=== PATIENT | female | born 1940 | race African-American/Black ===

== ENCOUNTER 2019-01-19 16:46 | Inpatient (IN) ==
[2019-01-19] MEDS ORDERED: DEXTROSE 50% 25 GM/50 ML VIAL IV PRN ×2 (19:32→19:33)
[2019-01-19] MEDS ORDERED: GLUCAGON 1 MG VIAL IM PRN (19:32)
[2019-01-19] MEDS ORDERED: ONDANSETRON 4 MG/2 ML VIAL IV PRN (19:34)
[2019-01-19] MEDS ORDERED: DOCUSATE SODIUM 100 MG CAPSULE PO PRN (19:34)
[2019-01-19] MEDS ORDERED: hydrALAZINE 20 MG/1 ML VIAL IV PRN (19:34)
[2019-01-19] MEDS ORDERED: ZALEPLON 5 MG CAPSULE PO PRN (19:34)
[2019-01-19] MEDS ORDERED: guaiFENesin/DM ER 600-30 MG TABLET PO PRN (19:34)
[2019-01-19] MEDS ORDERED: diphenhydrAMINE CAP 25 MG CAPSULE PO PRN (19:34)
[2019-01-19] MEDS ORDERED: ACETAMINOPHEN 325 MG TABLET PO PRN (19:34)
[2019-01-19] MEDS ORDERED: ALBUTEROL 2.5 MG/3 ML NEB RESP TX PRN (19:43)
[2019-01-19 19:54] LABS: ABG Base Excess -1.9 MMOL/L (-2.5-2.5); ABG HCO3 22.8 MMOL/L (20-26); ABG Oxygen Saturation 98.2 % (95-100); ABG TCO2 30.5 MMOL/L (23-27); Allen Test Positive
[2019-01-19 19:58] LABS: ABG PH 7.084 (7.35-7.45)
[2019-01-19 20:04] LABS: Basophils % 0.6 % (0.0-0.8); Eosinophils % 0.6 % (0.00-10.9); Hemoglobin 11.8 GM/DL (12.0-16.0); Immature Granulocytes % 0.8 %; Immature Granulocytes Absolute 0.05 #; Lymphocytes % 15.3 % (21.3-54.2); Mean Corpuscular HGB Conc 31.1 GM/DL (32-36); Mean Corpuscular Volume 91.3 FL (87-102); Mean Platelet Volume 10.2 FL (9.6-12.0); Monocytes % 5.5 % (1.7-12.7); NRBC # 0.03 10*3/uL; Neutrophils % 77.2 % (38.7-73.9); Platelet Count 155 T/CUMM (130-400); Red Blood Count 4.16 MC/CUMM (3.8-5.5); White Blood Count 6.4 T/CUMM (4-12)
[2019-01-19 20:22] LABS: Calcium 8.6 MG/DL (8.5-10.1); Osmolality,Calculated 296.3 MOS/KG (273-304)
[2019-01-19] MEDS ORDERED: SODIUM POLYSTYRENE SULFATE 15 GM/60 ML BOTTLE PO ONE (20:37)
[2019-01-19] MEDS ORDERED: SODIUM BICARBONATE 50 MEQ/50 ML VIAL IV ONE (20:37)
[2019-01-19] MEDS ORDERED: FUROSEMIDE 40 MG/4 ML VIAL IV SCH (21:00)
[2019-01-19 22:15] LABS: ABG Base Excess -0.7 MMOL/L (-2.5-2.5); ABG HCO3 23.2 MMOL/L (20-26); ABG Oxygen Saturation 66.9 % (95-100); ABG TCO2 29.8 MMOL/L (23-27)
[2019-01-19 22:20] LABS: ABG PH 7.141 (7.35-7.45)
[2019-01-19 22:21] LABS: ABG PCO2 93.7 MM HG (35-48); ABG PO2 37.5 MM HG (80-95)
[2019-01-19 22:24] LABS: ABG Base Excess -0.2 MMOL/L (-2.5-2.5); ABG HCO3 30.9 MMOL/L (20-26); ABG Oxygen Saturation 86.6 % (95-100); ABG PO2 59.7 MM HG (80-95); ABG TCO2 33.7 MMOL/L (23-27); Allen Test Positive; Pt O2 Delivery Device BIPAP
[2019-01-19 22:28] LABS: ABG PCO2 90.3 MM HG (35-48); ABG PH 7.152 (7.35-7.45)
[2019-01-19] MEDS: cefTRIAXone 1,000 MG in SYRINGE 1 EACH IV SCH (22:48)
[2019-01-19] MEDS: INSULIN LISPRO 100 UNIT/ML SUBCUT SCH (22:51)
[2019-01-19 22:53] LABS: Troponin I 0.082 NG/ML (0.00-0.045)
[2019-01-19] MEDS: methylPREDNISolone SOD SUC 40 MG/1 ML VIAL IV SCH (23:00)
[2019-01-20] MEDS ORDERED: ENOXAPARIN 80 MG/0.8 ML SYRINGE SUBCUT ONE
[2019-01-20] MEDS: AZITHROMYCIN INJ 500 MG in SODIUM CHLORIDE 0.9% 250 ML IV SCH ×2 (00:07→23:22)
[2019-01-20] MEDS: INSULIN LISPRO 100 UNIT/ML SUBCUT SCH ×5 (00:15→21:49)
[2019-01-20] MEDS: ALBUTEROL/IPRATROPIUM 3 ML NEB RESP TX SCH ×4 (01:37→19:34)
[2019-01-20 02:15] LABS: Apearance,Urine CLEAR (Clear); Bacteria,Urine Occasional /HPF (Few); Bilirubin,Urine Negative (Negative); Blood, Urine Negative (Negative); Glucose,Urine (UA) Negative (Negative); Hyaline Casts,Urine 3 /LPF (0-3); Ketones,Urine 5 mg/dL (Negative); Mucus,Urine Occasional /LPF (Occasional); Nitrite,Urine Negative (Negative); Protein,Urine 30 MG/DL; RBC,Urine 1 /HPF (0-4); Squamous Epithelial Cell,Urine Occasional /HPF (0-10); Urine Color Yellow (Yellow); Urine Specific Gravity 1.009 (1.001-1.035); Urine Urobilinogen < 2.0 EU/DL (0.2-1.0); WBC,Urine 2 /HPF (0-6)
[2019-01-20] MEDS: FUROSEMIDE 40 MG/4 ML VIAL IV SCH ×4 (02:46→13:21)
[2019-01-20 03:29] LABS: ABG HCO3 29.6 MMOL/L (20-26); ABG PCO2 54.7 MM HG (35-48); ABG PH 7.351 (7.35-7.45); ABG PO2 81.8 MM HG (80-95); ABG TCO2 31.3 MMOL/L (23-27); Allen Test Positive; Pt O2 Delivery Device BIPAP
[2019-01-20] MEDS: methylPREDNISolone SOD SUC 40 MG/1 ML VIAL IV SCH ×3 (03:55→20:50)
[2019-01-20 05:13] LABS: Basophils % 0.2 % (0.0-0.8); Hematocrit 36.9 VOL% (35.7-47.0); Hemoglobin 11.6 GM/DL (12.0-16.0); Immature Granulocytes % 0.7 %; Immature Granulocytes Absolute 0.04 #; Lymphocytes # 0.5 10*3/uL (1.4-4.0); Lymphocytes % 8.3 % (21.3-54.2); Mean Corpuscular HGB Conc 31.4 GM/DL (32-36); Mean Corpuscular Volume 88.9 FL (87-102); Mean Platelet Volume 10.6 FL (9.6-12.0); Monocytes % 0.9 % (1.7-12.7); Neutrophils % 89.9 % (38.7-73.9); Platelet Count 160 T/CUMM (130-400); Red Blood Count 4.15 MC/CUMM (3.8-5.5); White Blood Count 5.5 T/CUMM (4-12)
[2019-01-20 05:42] LABS: Calcium 8.7 MG/DL (8.5-10.1); Osmolality,Calculated 301.8 MOS/KG (273-304)
[2019-01-20 06:14] LABS: Lymphocytes 4 % (20-55); Platelet Estimate Decreased; Polychromasia Few; Segmented Neutrophils 96 % (50-85); Total Cells Counted 100
[2019-01-20] MEDS ORDERED: NIFEdipine 10 MG CAPSULE PO PRN (08:16)
[2019-01-20] MEDS: carvediloL 12.5 MG TABLET PO SCH ×2 (09:07→20:53)
[2019-01-20] MEDS: amLODIPine 10 MG TABLET PO SCH (09:08)
[2019-01-20] MEDS: ATORVASTATIN 20 MG TABLET PO SCH (09:08)
[2019-01-20] MEDS: PANTOPRAZOLE 40 MG TABLET PO SCH (09:09)
[2019-01-20] MEDS: ENOXAPARIN 30 MG/0.3 ML SYRINGE SUBCUT SCH (12:34)
[2019-01-20] MEDS: cefTRIAXone 1,000 MG in SYRINGE 1 EACH IV SCH (20:50)
[2019-01-21] MEDS: FUROSEMIDE 40 MG/4 ML VIAL IV SCH ×2 (01:07→13:45)
[2019-01-21] MEDS: ALBUTEROL/IPRATROPIUM 3 ML NEB RESP TX SCH ×4 (01:15→19:45)
[2019-01-21] MEDS: methylPREDNISolone SOD SUC 40 MG/1 ML VIAL IV SCH ×3 (04:40→21:50)
[2019-01-21 04:45] LABS: Hematocrit 34.2 VOL% (35.7-47.0); Hemoglobin 10.8 GM/DL (12.0-16.0); Immature Granulocytes % 0.4 %; Immature Granulocytes Absolute 0.02 #; Lymphocytes # 0.6 10*3/uL (1.4-4.0); Lymphocytes % 12.3 % (21.3-54.2); Mean Corpuscular HGB Conc 31.6 GM/DL (32-36); Mean Corpuscular Volume 87.9 FL (87-102); Mean Platelet Volume 10.3 FL (9.6-12.0); Monocytes % 3.2 % (1.7-12.7); NRBC # 0.02 10*3/uL; Neutrophils % 84.1 % (38.7-73.9); Platelet Count 141 T/CUMM (130-400); Red Blood Count 3.89 MC/CUMM (3.8-5.5); Red Cell Distribution Width 14.8 % (9.3-17.3); White Blood Count 5.1 T/CUMM (4-12)
[2019-01-21 04:59] LABS: Calcium 8.2 MG/DL (8.5-10.1); Osmolality,Calculated 296.5 MOS/KG (273-304)
[2019-01-21] MEDS: INSULIN LISPRO 100 UNIT/ML SUBCUT SCH ×4 (09:13→21:49)
[2019-01-21] MEDS: ENOXAPARIN 30 MG/0.3 ML SYRINGE SUBCUT SCH (09:13)
[2019-01-21] MEDS: amLODIPine 10 MG TABLET PO SCH (09:14)
[2019-01-21] MEDS: ATORVASTATIN 20 MG TABLET PO SCH (09:14)
[2019-01-21] MEDS: PANTOPRAZOLE 40 MG TABLET PO SCH (09:14)
[2019-01-21] MEDS: carvediloL 12.5 MG TABLET PO SCH ×2 (09:15→21:50)
[2019-01-21] MEDS: cefTRIAXone 1,000 MG in SYRINGE 1 EACH IV SCH (21:50)
[2019-01-22] MEDS: ALBUTEROL/IPRATROPIUM 3 ML NEB RESP TX SCH ×4 (00:35→19:41)
[2019-01-22] MEDS: methylPREDNISolone SOD SUC 40 MG/1 ML VIAL IV SCH (03:14)
[2019-01-22] MEDS: FUROSEMIDE 40 MG/4 ML VIAL IV SCH ×3 (03:14→20:50)
[2019-01-22 06:40] LABS: Calcium 8.4 MG/DL (8.5-10.1); Osmolality,Calculated 294.1 MOS/KG (273-304)
[2019-01-22] MEDS: INSULIN LISPRO 100 UNIT/ML SUBCUT SCH ×4 (09:18→20:44)
[2019-01-22] MEDS: AZITHROMYCIN 250 MG TABLET PO SCH (09:18)
[2019-01-22] MEDS: amLODIPine 10 MG TABLET PO SCH (09:18)
[2019-01-22] MEDS: PANTOPRAZOLE 40 MG TABLET PO SCH (09:18)
[2019-01-22] MEDS: ATORVASTATIN 20 MG TABLET PO SCH (09:18)
[2019-01-22] MEDS: carvediloL 12.5 MG TABLET PO SCH ×2 (09:18→20:45)
[2019-01-22] MEDS: ENOXAPARIN 30 MG/0.3 ML SYRINGE SUBCUT SCH (09:18)
[2019-01-22] MEDS: INSULIN GLARGINE 100 UNIT/ML SUBCUT SCH (10:20)
[2019-01-22] MEDS: SODIUM POLYSTYRENE SULFATE 15 GM/60 ML BOTTLE PO SCH (10:21)
[2019-01-22] MEDS: cefTRIAXone 1,000 MG in SYRINGE 1 EACH IV SCH (20:44)
[2019-01-23] MEDS: ALBUTEROL/IPRATROPIUM 3 ML NEB RESP TX SCH ×4 (01:18→20:19)
[2019-01-23] MEDS: INSULIN LISPRO 100 UNIT/ML SUBCUT SCH ×4 (09:52→21:59)
[2019-01-23] MEDS: carvediloL 12.5 MG TABLET PO SCH ×2 (10:04→21:59)
[2019-01-23] MEDS: INSULIN GLARGINE 100 UNIT/ML SUBCUT SCH (10:04)
[2019-01-23] MEDS: ENOXAPARIN 30 MG/0.3 ML SYRINGE SUBCUT SCH (10:04)
[2019-01-23] MEDS: AZITHROMYCIN 250 MG TABLET PO SCH (10:04)
[2019-01-23] MEDS: SODIUM POLYSTYRENE SULFATE 15 GM/60 ML BOTTLE PO SCH (10:05)
[2019-01-23] MEDS: amLODIPine 10 MG TABLET PO SCH (10:05)
[2019-01-23] MEDS: predniSONE 20 MG TABLET PO SCH (10:05)
[2019-01-23] MEDS: PANTOPRAZOLE 40 MG TABLET PO SCH (10:05)
[2019-01-23] MEDS: ATORVASTATIN 20 MG TABLET PO SCH (10:05)
[2019-01-23] MEDS: FUROSEMIDE 40 MG/4 ML VIAL IV SCH ×2 (10:20→21:59)
[2019-01-23] MEDS: cefTRIAXone 1,000 MG in SYRINGE 1 EACH IV SCH (21:59)
[2019-01-24] MEDS: ALBUTEROL/IPRATROPIUM 3 ML NEB RESP TX SCH ×4 (00:58→19:59)
[2019-01-24 05:40] LABS: Calcium 7.9 MG/DL (8.5-10.1); Osmolality,Calculated 295.5 MOS/KG (273-304)
[2019-01-24] MEDS: ENOXAPARIN 30 MG/0.3 ML SYRINGE SUBCUT SCH (08:58)
[2019-01-24] MEDS: ATORVASTATIN 20 MG TABLET PO SCH (08:59)
[2019-01-24] MEDS: AZITHROMYCIN 250 MG TABLET PO SCH (08:59)
[2019-01-24] MEDS: INSULIN GLARGINE 100 UNIT/ML SUBCUT SCH (08:59)
[2019-01-24] MEDS: predniSONE 20 MG TABLET PO SCH (08:59)
[2019-01-24] MEDS: amLODIPine 10 MG TABLET PO SCH (08:59)
[2019-01-24] MEDS: PANTOPRAZOLE 40 MG TABLET PO SCH (08:59)
[2019-01-24] MEDS: INSULIN LISPRO 100 UNIT/ML SUBCUT SCH ×4 (09:00→22:54)
[2019-01-24] MEDS: carvediloL 12.5 MG TABLET PO SCH ×2 (09:00→22:55)
[2019-01-24] MEDS: SODIUM POLYSTYRENE SULFATE 15 GM/60 ML BOTTLE PO SCH (09:00)
[2019-01-24] MEDS: FUROSEMIDE 40 MG TABLET PO SCH ×2 (11:13→17:07)
[2019-01-24] MEDS: cefTRIAXone 1,000 MG in SYRINGE 1 EACH IV SCH (22:55)
[2019-01-25] MEDS: ALBUTEROL/IPRATROPIUM 3 ML NEB RESP TX SCH ×4 (00:20→19:30)
[2019-01-25 07:06] LABS: Calcium 8.2 MG/DL (8.5-10.1); Osmolality,Calculated 295.5 MOS/KG (273-304)
[2019-01-25] MEDS: PANTOPRAZOLE 40 MG TABLET PO SCH (08:58)
[2019-01-25] MEDS: AZITHROMYCIN 250 MG TABLET PO SCH (08:58)
[2019-01-25] MEDS: carvediloL 12.5 MG TABLET PO SCH ×2 (08:58→21:41)
[2019-01-25] MEDS: predniSONE 20 MG TABLET PO SCH (08:59)
[2019-01-25] MEDS: FUROSEMIDE 40 MG TABLET PO SCH ×2 (08:59→17:42)
[2019-01-25] MEDS: SODIUM POLYSTYRENE SULFATE 15 GM/60 ML BOTTLE PO SCH (08:59)
[2019-01-25] MEDS: ATORVASTATIN 20 MG TABLET PO SCH (08:59)
[2019-01-25] MEDS: amLODIPine 10 MG TABLET PO SCH (08:59)
[2019-01-25] MEDS: ENOXAPARIN 30 MG/0.3 ML SYRINGE SUBCUT SCH (09:00)
[2019-01-25] MEDS: INSULIN LISPRO 100 UNIT/ML SUBCUT SCH ×4 (09:00→21:39)
[2019-01-25] MEDS: INSULIN GLARGINE 100 UNIT/ML SUBCUT SCH (09:01)
[2019-01-25] MEDS: cefTRIAXone 1,000 MG in SYRINGE 1 EACH IV SCH (21:41)
[2019-01-26] MEDS: ALBUTEROL/IPRATROPIUM 3 ML NEB RESP TX SCH ×2 (00:29→08:21)
[2019-01-26 05:22] LABS: Eosinophils % 0.2 % (0.00-10.9); Hemoglobin 11.4 GM/DL (12.0-16.0); Immature Granulocytes % 0.4 %; Immature Granulocytes Absolute 0.02 #; Lymphocytes # 0.8 10*3/uL (1.4-4.0); Lymphocytes % 16.6 % (21.3-54.2); Mean Corpuscular HGB Conc 32.6 GM/DL (32-36); Mean Corpuscular Volume 85.8 FL (87-102); Mean Platelet Volume 11.9 FL (9.6-12.0); Monocytes % 8.7 % (1.7-12.7); Neutrophils % 74.1 % (38.7-73.9); Platelet Count 170 T/CUMM (130-400); Red Blood Count 4.08 MC/CUMM (3.8-5.5); Red Cell Distribution Width 14.6 % (9.3-17.3); White Blood Count 4.7 T/CUMM (4-12)
[2019-01-26] MEDS: INSULIN LISPRO 100 UNIT/ML SUBCUT SCH ×2 (08:47→11:48)
[2019-01-26] MEDS: SODIUM POLYSTYRENE SULFATE 15 GM/60 ML BOTTLE PO SCH (08:49)
[2019-01-26] MEDS: ENOXAPARIN 30 MG/0.3 ML SYRINGE SUBCUT SCH (09:35)
[2019-01-26] MEDS: PANTOPRAZOLE 40 MG TABLET PO SCH (09:35)
[2019-01-26] MEDS: predniSONE 20 MG TABLET PO SCH (09:35)
[2019-01-26] MEDS: INSULIN GLARGINE 100 UNIT/ML SUBCUT SCH (09:35)
[2019-01-26] MEDS: amLODIPine 10 MG TABLET PO SCH (09:36)
[2019-01-26] MEDS: FUROSEMIDE 40 MG TABLET PO SCH (09:36)
[2019-01-26] MEDS: AZITHROMYCIN 250 MG TABLET PO SCH (09:36)
[2019-01-26] MEDS: ATORVASTATIN 20 MG TABLET PO SCH (09:36)
[2019-01-26] MEDS: carvediloL 12.5 MG TABLET PO SCH (09:36)
[2019-01-26 13:27] VITALS: BP 129/60
== END 2019-01-26 13:40 | disposition home health service (06) | DRG 291 ==
LOC: SUATTDRO 18:27 → N.TELEN 18:27 → N.ICU 21:35 → N.TELEN 01-21 13:58
PROVIDERS: ADMIT Internal Medicine; ATTEND Emergency Medicine